=== PATIENT | male | born 1950 | race Caucasian/White ===

== ENCOUNTER 2017-05-15 13:05 | Emergency (ER) | payer OTHER ==
[~2017-05-15] VITALS: Ht 185.4 cm; Wt 90.1 kg
[2017-05-15] MEDS ORDERED: CICLESONIDE NAB (13:16)
[2017-05-15] MEDS ORDERED: CRESTOR5 MG PO (13:16)
[2017-05-15] MEDS ORDERED: ZPAK PO (15:11)
[2017-05-15 15:16] VITALS: BP 122/74
== END 2017-05-15 15:22 | disposition home or self-care (01) | DRG 203 ==
LOC: ED 13:05
DX: J40 Bronchitis, not specified as acute or chronic (principal); E78.00 Pure hypercholesterolemia, unspecified

== ENCOUNTER 2019-04-04 | Emergency (ER) | payer OTHER ==
[~2019-04-04] MED LIST: CICLESONIDE NAB; CRESTOR5 MG PO; ZPAK PO
[2019-04-04] MEDS ORDERED: TESSALON PER100 MG PO (14:00)
[2019-04-04] MEDS ORDERED: VENTOLIN HFA IN (14:00)
== END 2019-04-04 14:15 | disposition home or self-care (01) | DRG 866 ==
DX: B34.9 Viral infection, unspecified (principal)